=== PATIENT | female | born 1975 | race Caucasian/White ===

== ENCOUNTER 2023-04-27 14:52 | Emergency (ER) | payer OTHER, SELFPAY ==
--- NOTE | ~2023-04-27 | CT_ITS ---
EXAMINATION: CT abdomen pelvis w con DATE: 04/27/2023 16:10 INDICATION: Right flank pain. Difficulty emptying bladder. TECHNIQUE: Computed tomography (CT) of the abdomen and pelvis was performed with 100 CC Omnipaque 350 intravenous contrast. Automated exposure control and iterative reconstruction technique were employe d. Exam dose: 255.58 mGy-cm total exam DLP. COMPARISON: None. FINDINGS: The lung bases are clear of infiltrate or consolidation. Normal heart size. No pericardial or pleural effusion. There is cholelithiasis. No gallbladder wall thickening or pericholecystic fluid or fat stranding is evident. No bile duct or pancreatic duct dilatation. No pancreatic mass lesion or calcification. No h epatic space-occupying mass lesion. The spleen appears normal. Normal morphology of the adrenal glands. There is patchy diminished contrast enhancement of the right kidney, especially involving the upper p ole, with some focal diminished enhancement within the mid posterior medial right kidney and posterio r lower pole. The findings suggest acute right pyelonephritis. The left kidney appears normal. No urinary tract calculus or hydroureteronephrosis. The urinary bladder is largely evacuated, not opt imally evaluated. Retroverted uterus Normal caliber of the abdominal aorta. No intraperitoneal or retroperitoneal or pelvic mass lesion or adenopathy or ascites is detected. There is a prominent amount of fecal material and gas within the colon but no bowel obstruction, dilma l wall thickening, pneumatosis or intraperitoneal free air is noted. Small fat-containing umbilical hernia. Included skeletal structures are unremarkable. IMPRESSION: Right acute pyelonephritis Cholelithiasis Reviewed, dictated and finalized at [facility] Reviewed, dictated and finalized at [facility].
[2023-04-27 14:54] VITALS: BP 109/81; PULSE 120; RESP 20; TEMP 36.3; O2SAT 100
[2023-04-27 15:45] VITALS: BP 123/90; PULSE 98; RESP 14; O2SAT 98
[2023-04-27 15:45] LABS: Basophils Percent Auto 0.2 % (0.2-1.2); Eosinophils Absolute Auto 0.1 K/mm3 (0-0.3); Eosinophils Percent Auto 0.7 % (0-4.4); Hematocrit 39.8 % (37.0-47.0); Hemoglobin 12.6 g/dL (12.0-15.0); Immature Granulocyte Absolute 0.06 K/mm3 (0.00-0.031); Immature Granulocyte Percent A 0.5 % (0-0.5); Lymphocytes Absolute Auto 1.78 K/mm3 (0.9-3.2); Lymphocytes Percent Auto 13.9 % (18.3-44.2); Mean Corpuscular HGB Conc 31.7 g/dl (32-36); Mean Corpuscular Hemoglobin 27.9 pg (26-34); Mean Corpuscular Volume 88.2 fl (80-100); Mean Platelet Volume 8.6 fl (7.4-10.4); Monocytes Percent Auto 7.9 % (2.6-8.5); Neutrophils Absolute Auto 9.8 K/mm3 (1.3-6.7); Neutrophils Percent Auto 76.8 % (45.5-73.1); Platelet Count Result 597 k/mm3 (150-375); Red Blood Count 4.51 M/mm3 (4.2-5.4); Red Cell Distribution Width 13.4 % (11.5-14.5); White Blood Count 12.8 K/mm3 (4.5-10.0)
[2023-04-27 15:49] LABS: Appearance Urine Turbid (Clear); Bacteria Urine None Seen /hpf; Bilirubin Urine 1+ (Negative); Blood Urine 3+ (Negative); Color Urine Dark Yellow (Yellow); Glucose Urine UA Negative (Negative); Ketones Urine Trace mg/dL (Negative); Leukocyte Esterase Ur 3+ LEU/UL (Negative); Mucus Urine Present /lpf; Need Manual Microscopic Reviewed; Nitrate Urine Negative (Negative); Protein Urine 2+ mg/dL (Negative); RBC Urine 21-50 /hpf (0-2); Specific Grav Ur 1.024 (1.001-1.035); Squamous Epithelial Cell Urine Occasional /hpf (Few); WBC Urine >100 /hpf; pH Urine 5.5 (5.0-9.0)
[2023-04-27 15:53] LABS: Add Urine Microscopic? YES
[2023-04-27 15:55] LABS: Alanine Aminotransferase 53 U/L (6-35); Albumin Level 4.4 g/dL (3.5-5.1); Alkaline Phosphatase 179 U/L (38-126); Anion Gap 10 mmol/L (8-16); Aspartate Amino Transferase 34 U/L (14-36); Bilirubin,Total 0.3 mg/dL (0.2-1.3); Blood Urea Nitrogen 7 mg/dL (7-17); Carbon Dioxide 34 mmol/L (22-30); Chloride 93 mmol/L (98-107); Estimated CRCL calculation 72 ml/min; Estimated Glomerular Filt Rate > 60; Glucose 99 mg/dL (65-110); Sodium 137 mmol/L (137-145)
--- NOTE | 2023-04-27 16:00 | ED.GENADULT ---
HPI - General Adult General Chief complaint: Urogenital-Female Stated complaint: ?kidney infection Time Seen by Provider: 04/27/23 15:21 History of Present Illness HPI narrative: Linda Rodriguez is a 48 y/o female who presents today with reports of a week long of fevers and right flank pain. She states she has had a kidney infection several years ago and this is what it feels like. She tried to avoid coming to the ED because she thought it might get better. She is currently here from out of town. Denies any abdominal pain or dysuria - she does report of feeling like she has to strain to try to urinate but she does not feel like she is retaining urine. Related Data Allergies Allergy/AdvReac Type Severity Reaction Status Date / Time No Known Drug Allergies Allergy Unknown Verified 04/27/23 16:30 Review of Systems Review of Systems: CONSTITUTIONAL: Denies fever, chills, or sweats. EYES: Denies visual changes, redness, or discharge. ENT: Denies rhinorrhea, congestion, sore throat, or otalgia. CARDIOVASCULAR: Denies chest pain, palpitations, or edema. RESPIRATORY: Denies cough or dyspnea. GASTROINTESTINAL: Denies abdominal pain, reports some nausea but has not vomited. Denies any changes to her bowels. GENITOURINARY: Denies dysuria or hematuria. SKIN: Denies rash or itching. MUSCULOSKELETAL: reports of right flank pain NEUROLOGIC: Denies headache, numbness, dizziness, or weakness. PSYCHIATRIC: Denies anxiety or depression. Exam Narrative: GENERAL: Well-appearing, well-nourished, and in no acute distress. HEAD: Normocephalic, atraumatic. EYES: PERRLA and EOMI. ENT: Nares clear, no rhinorrhea or epistaxis. Mucous membranes moist. Oropharynx without tonsillar hypertrophy exudate or other lesions. Bilateral TMs pearly helm nonbulging NECK: Supple. No adenopathy or masses. No carotid bruits or JVD CHEST: Clear to auscultation. No respiratory distress. No wheezes rales or rhonchi HEART: Regular rate and rhythm. No murmur heard. Normal peripheral pulses. ABDOMEN: Soft, nontender, nondistended, normal active bowel sounds. EXTREMITIES: Normal range of motion. No edema. SKIN: Warm, dry, no rash. NEURO: No focal deficits. Alert and oriented x3. PSYCH: Normal mood and affect. Course Vital Signs Vital signs: Vital Signs Temperature 36.3 C L 04/27/23 14:54 Pulse Rate 120 H 04/27/23 14:54 Respiratory Rate 20 04/27/23 14:54 Blood Pressure 109/81 04/27/23 14:54 Pulse Oximetry 100 04/27/23 14:54 Oxygen Delivery Room Air 04/27/23 14:54 Temperature 36.3 C L 04/27/23 14:54 Pulse Rate 112 H 04/27/23 16:34 Respiratory Rate 16 04/27/23 16:34 Blood Pressure 123/90 04/27/23 16:34 Pulse Oximetry 100 04/27/23 16:34 Oxygen Delivery Room Air 04/27/23 14:54 Medical Decision Making MDM Narrative Medical decision making narrative: On exam pt appears to be uncomfortable reports of fever/ chills Positive CVA tenderness to the right no abdominal pain, bowel sounds present. No chest pain/shortness of breath Concern for UTI/Pyelonephritis/ sepsis/ dehydration/ ureterolithiasis / obstructing ureterolithiasis Urine is showing acute cystitis with hematuria and CT is showing pyelonephritis Updated pt on result and using shared decision making pt would like to go home with oral antibiotics she states she has not had any vomiting and believes she will be able to keep her antibiotics down. Plan : Start taking the Bactrim for your kidney infection as ordered for 2 weeks. You may take the Zofran if needed for nausea. You were also noted to have gallstones in your gallbladder on the CT - your gallbladder did not look inflamed or infected, however if you begin to have right upper quadrant pain you should return to the ED. If you are unable to keep your antibiotics down you will need to return to the ED. Follow up with your PCP in 2 weeks to have your urine checked to ensure your infection is regino
[2023-04-27] MEDS: SODIUM CHLORIDE 0.9% IV 1,000 ML 999 ML IV CONT (16:31)
[2023-04-27] MEDS: ONDANSETRON INJ 4 MG/2 ML VIAL IV PUSH (16:32)
[2023-04-27] MEDS: MORPHINE SULFATE (*CRX) 2 MG/ML INJ IV PUSH (16:32)
[2023-04-27 16:34] VITALS: BP 123/90; PULSE 112; RESP 16; O2SAT 100
[2023-04-27 16:48] LABS: Lactic Acid Reflex 0.8 mmol/L (0.7-2.0)
[2023-04-27] MEDS: KETOROLAC 30 MG/ML VIAL (*BKC) IV PUSH (17:00)
[2023-04-27 17:35] VITALS: BP 114/78; PULSE 97; RESP 21; O2SAT 100
== END 2023-04-27 17:42 | disposition home or self-care (01) ==
PROVIDERS: Emergency Medicine; Emergency Provider Nurse Practitioner Family
DX: N12 Tubulo-interstitial nephritis, not specified as acute or chronic (principal); N30.01 Acute cystitis with hematuria; K80.20 Calculus of gallbladder without cholecystitis without obstruction
CPT/HCPCS: 36415; 74177; 80053; 81001; 81025; 83605; 85025; 87077; 87086; 87186; 96361; 96365; 96375; 99284; J0696; J1885; J2270; J2405; J7030; Q9967

== ENCOUNTER 2023-07-06 12:48 | Emergency (ER) | payer MEDICAID, SELFPAY ==
[2023-07-06] VITALS (8 sets, daily range): BP systolic 102–124; BP diastolic 72–84; PULSE 92–112; RESP 12–27; TEMP 36.5; O2SAT 96–100
--- NOTE | ~2023-07-06 | XR_ITS ---
XR chest 2V DATE: 07/06/2023 13:40 INDICATION: Mid chest pain. Status post chest compressions today. TECHNIQUE: AP and lateral chest COMPARISON: None FINDINGS: Bilateral elongated C7 transverse processes. Normal heart size. No hilar or mediastinal enlargement. No pulmonary infiltrate or consolidation, ple ural effusion or pulmonary vascular congestion or pneumothorax. Included skeletal structures are unre markable. IMPRESSION: No active cardiopulmonary disease Reviewed, dictated and finalized at [facility].
--- NOTE | 2023-07-06 12:58 | ECG_ITS ---
Measurements Intervals Sarah Rate: 97 P: 68 MD: 142 QRS: 62 QRSD: 91 T: 58 QT: 370 QTc: 471 Interpretive Statements SINUS RHYTHM NO PREVIOUS ECG AVAILABLE FOR COMPARISON Electronically Signed On 07-06-2023 15:46:52 CDT by Waldemar Gutierrez M.D.
[2023-07-06 13:29] LABS: Basophils Percent Auto 0.4 % (0.2-1.2); Eosinophils Absolute Auto 0.1 K/mm3 (0-0.3); Eosinophils Percent Auto 1.7 % (0-4.4); Hematocrit 39.6 % (37.0-47.0); Hemoglobin 12.3 g/dL (12.0-15.0); Immature Granulocyte Absolute 0.06 K/mm3 (0.00-0.031); Immature Granulocyte Percent A 1.2 % (0-0.5); Lymphocytes Percent Auto 36.6 % (18.3-44.2); Mean Corpuscular HGB Conc 31.1 g/dl (32-36); Mean Corpuscular Hemoglobin 28.9 pg (26-34); Mean Platelet Volume 9.5 fl (7.4-10.4); Monocytes Absolute Auto 0.2 K/mm3 (0.1-0.6); Monocytes Percent Auto 4.2 % (2.6-8.5); Neutrophils Absolute Auto 2.9 K/mm3 (1.3-6.7); Neutrophils Percent Auto 55.9 % (45.5-73.1); Platelet Count Result 319 k/mm3 (150-375); Red Blood Count 4.26 M/mm3 (4.2-5.4); Red Cell Distribution Width 14.4 % (11.5-14.5); White Blood Count 5.2 K/mm3 (4.5-10.0)
[2023-07-06 13:39] LABS: Alanine Aminotransferase 686 U/L (6-35); Albumin Level 4.2 g/dL (3.5-5.1); Alkaline Phosphatase 67 U/L (38-126); Anion Gap 5 mmol/L (8-16); Aspartate Amino Transferase 691 U/L (14-36); Bilirubin,Total 0.4 mg/dL (0.2-1.3); Blood Urea Nitrogen 15 mg/dL (7-17); Calcium 8.8 mg/dL (8.4-10.2); Carbon Dioxide 27 mmol/L (22-30); Chloride 102 mmol/L (98-107); Estimated CRCL calculation 82 ml/min; Estimated Glomerular Filt Rate > 60; Glucose 205 mg/dL (65-110); Potassium 4.7 mmol/L (3.4-5.0); Sodium 134 mmol/L (137-145)
[2023-07-06 14:43] LABS: Barbiturate Screen Urine Negative (Negative); Benzodiazepines Screen Urine Negative (Negative)
[2023-07-06 14:44] LABS: Cannabinoid Screen Urine Positive (Negative); Cocaine Screen Urine Negative (Negative); Methadone Screen Urine Negative (Negative); Opiate Screen Urine Positive (Negative); Phencyclidine Screen Urine Negative (Negative)
[2023-07-06 14:47] LABS: Appearance Urine Cloudy (Clear); Bacteria Urine Rare /hpf; Bilirubin Urine Negative (Negative); Blood Urine 2+ (Negative); Color Urine Yellow (Yellow); Glucose Urine UA 1+ mg/dL (Negative); Hyaline Casts Urine Present /lpf; Ketones Urine Negative (Negative); Leukocyte Esterase Ur Negative LEU/UL (Negative); Need Manual Microscopic Reviewed; Nitrate Urine Negative (Negative); Non Pathogenic Casts >20; Protein Urine 3+ mg/dL (Negative); Specific Grav Ur 1.022 (1.001-1.035); Squamous Epithelial Cell Urine Few /hpf (Few); Urobilinogen Urine 0.2 mg/dL (<2.0); pH Urine 5.5 (5.0-9.0)
[2023-07-06 14:53] LABS: Add Urine Microscopic? YES
[2023-07-06 16:03] LABS: Amphetamine Screen Urine Positive (Negative)
[2023-07-06] MEDS: LIDOCAINE 5% PATCH 1 PATCH TRANSDERM (16:55)
[2023-07-06] MEDS: KETOROLAC 15 MG/ML VIAL (*BKC) IV PUSH (16:55)
--- NOTE | 2023-07-06 18:49 | ED.OVERDOSE ---
HPI - Overdose General Chief Complaint: Overdose Stated Complaint: overdose Time Seen by Provider: 07/06/23 13:25 History of Present Illness HPI Narrative: Patient found in the bathtub by police department unresponsive, they did start chest compressions and gave Narcan multiple times, patient finally became more responsive after bagging, she stated that she was only trying to take MDMA, and had taken a small pill and thought that is what it was. States she has no interest in taking narcotics. She is complaining of some midsternal chest pain. Related Data Allergies Allergy/AdvReac Type Severity Reaction Status Date / Time No Known Drug Allergies Allergy Unknown Verified 07/06/23 13:03 Review of Systems Review of Systems: All systems reviewed & are unremarkable except as noted in HPI and below Exam Narrative: EXAMINATION OF ORGAN SYSTEMS/BODY AREAS: Constitutional: Vital signs per nursing GENERAL: Appears to be slightly uncomfortable HEAD: Normal with no signs of head trauma. EYES: EOMI, conjunctiva normal ENT: Hearing grossly intact LUNGS: Nonlabored breathing. HEART: [Regular rate and rhythm] ABD: [Soft], [nontender to palpation] EXT: Normal range of motion SKIN: [No rashes or lesions.] NEURO: [Alert and oriented x 3. No gross focal sensory or strength deficits.] PSYCH: Normal affect Course Vital Signs Vital signs: Vital Signs Temperature 97.7 F 07/06/23 12:49 Pulse Rate 96 07/06/23 12:49 Respiratory Rate 21 H 07/06/23 12:49 Blood Pressure 124/83 07/06/23 12:49 Pulse Oximetry 99 07/06/23 12:49 Oxygen Delivery Room Air 07/06/23 12:49 Temperature 97.7 F 07/06/23 12:49 Pulse Rate 102 H 07/06/23 17:21 Respiratory Rate 18 07/06/23 17:21 Blood Pressure 102/76 07/06/23 17:21 Pulse Oximetry 97 07/06/23 17:21 Oxygen Delivery Room Air 07/06/23 12:49 MDM - Overdose MDM Narrative Medical decision making narrative: Patient presents after suspected narcotic overdose which was reversed with Narcan, on exam here she is well-appearing, alert, she does have tenderness to palpation to her mid sternum, lung sounds clear bilaterally, I will obtain imaging to ensure no pneumothorax or obvious fracture. Thankfully this is negative. She is observed here for several hours and has not required any further Narcan, she has had normal oxygenation and respirations, I do feel she is stable for discharge at this time. Labs are concerning for elevated LFTs which are baseline, however she has had history of this in the past and she has no right upper quadrant pain or tenderness. UDS is positive for opiates and amphetamines, I did have a long discussion with the patient and she is sure she will not do illicit drugs again, I will give her Narcan prescription and follow-up to GI, and she can return for any further issues. Patient agreeable to this plan. Lab Data 07/06/23 13:23 07/06/23 13:23 Labs: Lab Results 07/06/23 07/06/23 Range/Units 13:23 14:18 WBC 5.2 (4.5-10.0) K/mm3 RBC 4.26 (4.2-5.4) M/mm3 Hgb 12.3 (12.0-15.0) g/dL Hct 39.6 (37.0-47.0) % MCV 93.0 (80-100) fl MCH 28.9 (26-34) pg MCHC 31.1 L (32-36) g/dl RDW 14.4 (11.5-14.5) % Plt Count 319 (150-375) k/mm3 MPV 9.5 (7.4-10.4) fl Immature Gran % (Auto) 1.2 H (0-0.5) % Neut % (Auto) 55.9 (45.5-73.1) % Lymph % (Auto) 36.6 (18.3-44.2) % [place] % (Auto) 4.2 (2.6-8.5) % Eos % (Auto) 1.7 (0-4.4) % Baso % (Auto) 0.4 (0.2-1.2) % Lymph # (Auto) 1.90 (0.9-3.2) K/mm3 [place] # (Auto) 0.2 (0.1-0.6) K/mm3 Eos # (Auto) 0.1 (0-0.3) K/mm3 Baso # (Auto) 0.0 (0.0-0.1) K/mm3 Abs Immat Gran (auto) 0.06 H (0.00-0.031) K/mm3 Absolute Neuts (auto) 2.9 (1.3-6.7) K/mm3 Absolute Nucleated RBC 0.0 (0.0-0.012) K/mm3 Nucleated RBC % 0.0 (0.0-0.2) % Sodium 134 L (137-145) mmol/L Potassium 4.7 (3.4-5.0) mmol/L Chloride 102 (
== END 2023-07-06 17:35 | disposition home or self-care (01) ==
PROVIDERS: Emergency Medicine; Emergency Provider Emergency Medicine
DX: T40.601A Poisoning by unspecified narcotics, accidental (unintentional), initial encounter (principal); T43.621A Poisoning by amphetamines, accidental (unintentional), initial encounter
CPT/HCPCS: 36415; 71046; 80053; 80307; 81001; 81025; 85025; 87086; 87088; 87147; 93005; 96374; 99284; A9270; J1885